=== PATIENT | female | born 1945 | race Caucasian/White ===

== ENCOUNTER 2023-02-23 22:01 | Emergency (ER) | payer MEDICAID ==
[~2023-02-23] VITALS: Ht 170.2 cm; Wt 77.1 kg
--- NOTE | 2023-02-23 22:27 | NUR ---
[id number] FROM HOME W/ CC OF SUBSTERNAL CP 03/19. 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 +NAUSEA, +VOMITING. PLACED IN BED COMFORTABLY, VITALS CHECKED.
[2023-02-23] MEDS ORDERED: MAG HYDROX/AL HYDROX/SIMETH 30 ML UDC PO ONE (22:30)
[2023-02-23] MEDS ORDERED: LIDOCAINE VISCOUS 2% UD 15 ML UDC MM ONE (22:30)
[2023-02-23] MEDS ORDERED: ONDANSETRON HCL/PF 4 MG/2 ML VIAL IVP ONE (22:30)
--- NOTE | 2023-02-23 22:35 | NUR ---
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
--- NOTE | 2023-02-23 22:39 | NUR ---
20GA TO RT AC ESTABLISHED
--- NOTE | 2023-02-23 22:40 | NUR ---
BLOOD WORK COLLECTED AND SENT TO LAB
--- NOTE | 2023-02-23 22:41 | NUR ---
PT REFUSED XR AT THIS TIME
[2023-02-23] MEDS ORDERED: ONDANSETRON HCL/PF 4 MG/2 ML VIAL ONE (22:47)
[2023-02-23] MEDS ORDERED: MAG HYDROX/AL HYDROX/SIMETH 30 ML UDC ONE (22:47)
[2023-02-23 22:56] LABS: BASOPHILS % (AUTO) 0.2 % (0.0-2.0); EOSINOPHILS % (AUTO) 0.3 % (0.0-6.0); HEMATOCRIT 39 % (33-45); LYMPHOCYTES # (AUTO) 0.4 K/uL (0.8-4.8); LYMPHOCYTES % (AUTO) 4.3 % (20.0-44.0); MEAN CORPUSCULAR HGB CONC 34 g/dl (31.0-36.0); MEAN CORPUSCULAR VOLUME 85 fL (82-100); MONOCYTES # (AUTO) 0.5 K/uL (0.1-1.30); NEUTROPHILS # (AUTO) 9.1 K/uL (1.8-8.9); NEUTROPHILS % (AUTO) 90.2 % (43.0-81.0); PLATELET COUNT (AUTO) 272 K/uL (150-450); RED BLOOD CELL COUNT(AUTO) 4.53 MIL/uL (4.0-5.2); WHITE BLOOD COUNT (AUTO) 10.1 K/uL (4.3-11.0)
[2023-02-23] MEDS ORDERED: IV NS 0.9% 1,000 ML BAG IV ONE (23:00)
[2023-02-23 23:22] LABS: CALCIUM, SERUM 8.7 mg/dL (8.5-10.1); CARBON DIOXIDE 23 mmol/L (21-32); CHLORIDE 89 mmol/L (98-107); CREATININE 0.9 mg/dL (0.6-1.3); GLUCOSE 150 mg/dL (74-106); POTASSIUM 3.9 mmol/L (3.5-5.1); UREA NITROGEN, BLOOD 8 mg/dL (7-18)
[2023-02-23 23:23] LABS: SODIUM SERUM 120 mmol/L (136-145)
[2023-02-23 23:29] LABS: ALANINE AMINOTRANSFERASE 22 U/L (12-78); ALBUMIN 3.6 g/dL (3.4-5.0); ALKALINE PHOSPHATASE 89 U/L (46-116); ASPARTATE AMINOTRANSFERASE 20 U/L (15-37); BILIRUBIN,DIRECT 0.3 mg/dL (0.0-0.2); TOTAL PROTEIN, SERUM 6.6 g/dL (6.4-8.2)
--- NOTE | 2023-02-23 23:29 | NUR ---
COVID SWAB DONE AND SENT TO LAB
--- NOTE | 2023-02-24 00:36 | NUR ---
Written and verbal after care instructions given. Patient verbalizes understanding of instruction. IV removed. Catheter intact and site benign. Pressure and 4x4 applied to site. No bleeding noted.
--- NOTE | 2023-02-24 00:36 | NUR ---
Patient does not wish to proceed with medical care recommended by Dr. Taras CIFUENTES. Patient given information related to possible complications, up to and including , which could occur as a result of leaving the hospital at this time. Patient verbalizes understanding of risks involved due to leaving against medical advice. Patient has signed AMA form.
[2023-02-24 00:38] VITALS: BP 149/72
== END 2023-02-24 00:39 | disposition left against medical advice (07) ==
LOC: ER 22:09
DX: I44.7 Left bundle-branch block, unspecified (principal); E87.1 Hypo-osmolality and hyponatremia; R07.89 Other chest pain; I10 Essential (primary) hypertension; Z20.822 Contact with and (suspected) exposure to COVID-19
CPT/HCPCS: 99283; 96374; 96361; 87426; 93005; 85025; 80048; 80076; 36415; 84484; 85730; J2405; J7030; C9803